=== PATIENT | female | born 1990 | race Caucasian/White ===

== ENCOUNTER 2017-07-10 04:50 | Inpatient (IN) | payer BC ==
[2017-07-10] MEDS ORDERED: Ondansetron 4 MG/2 ML SDV IVPUSH PRN (07:13)
[2017-07-10] MEDS ORDERED: Sodium Chloride 0.9% 10 ML Syringe FLUSH PRN (07:13)
[2017-07-10] MEDS ORDERED: Nalbuphine 20 MG/1 ML Amp IVPUSH PRN (07:13)
[2017-07-10] MEDS ORDERED: Lidocaine 1% 50 ML MDV INJECT ONE (07:13)
[2017-07-10] MEDS ORDERED: Oxytocin/Lactated Ringers 10 UNIT/1,000 ML BAG IV SCH (07:15)
--- NOTE | 2017-07-10 07:36 | HP ---
DATE OF ADMISSION: 07/10/2017 ADMISSION DIAGNOSIS: A 40 and 5/7th week intrauterine , elective induction of labor. HISTORY OF PRESENT ILLNESS: The patient is a 26-year-old, 2, para 0-0-1-0 white female who presents to Labor and Delivery for elective induction of labor at 40 and 5/7th weeks' gestational age with an DANE of 07/05/2017 as based upon a certain last menstrual period, which started on 09/28/2016 and was supported by at least 3 ultrasounds done on 11/10/2016, 12/08/2016, and 02/15/2017. The patient presently is 2 cm dilated, very soft, -1 station, and posteriorly positioned. We will initiate induction with Pitocin to be followed by artificial rupture of membranes. The procedure, risks, benefits, and alternatives of care including monitoring for natural onset of labor are discussed in detail with the patient. She appears to understand, wishes to proceed. MOTOR TESTER HISTORY: 2, para 0-0-1-0 with 1 miscarriage that occurred in August 2016 spontaneously. The patient's course has been relatively unremarkable. She has been a member of our centering program. She is Rh negative and did receive RhoGAM during the course of her at second trimester. She declined genetic evaluation. Her group B strep screen is negative. She has had a symptomatic hemorrhoid over the last 2 weeks, which has been treated conservatively with medications. She is rubella nonimmune and is in need of an MMR . She plans to breastfeed. First visit was on 12/08/2016 at 10 and 1/7th weeks gestational age. She was seen on a regular basis throughout the . Her vital signs remained stable through the . Her weight increased from a pregravid weight of 133 to a final weight of 181 at the time of her last visit. This was a 48-pound weight gain. Her fundal height growth was appropriate. heart tones were appropriate. laboratory testing showed her blood to be O negative with a negative antibody screen. First hemoglobin was 13.6, and platelets were 257,000. Her Pap smear was negative. Rubella titer showed nonimmunity. RPR was nonreactive. Urine culture was negative. Hepatitis B and HIV assays were both negative. Chlamydia and gonorrhea assays were both negative. Second trimester laboratory testing showed a hemoglobin of 13.2 and platelets of 216,000. Her 1-hour GTT was normal at 102. Third trimester hemoglobin was 11.1 and platelets were 207, and the patient was started on iron therapy. Her group B strep screen was negative. ALLERGIES: None other than shellfish. No known drug allergies. CURRENT MEDICATIONS: 1. Hydrocortisone 2.5% rectal cream up to t.i.d. p.r.n. for hemorrhoidal pain. 2. Ferrous sulfate 325 mg daily. 3. Calcium 600 mg daily. 4. Folic acid 800 mcg daily. 5. Hair, skin, and nails formula oral tablets daily. 6. tablets 1 daily. PAST MEDICAL HISTORY: Spontaneous in August 2016. PAST SURGICAL HISTORY: Unremarkable. FAMILY HISTORY: Mother and father are alive and well. The patient has 2 half brothers who are alive and well. Maternal grandmother is alive and well. Maternal grandfather is secondary to old age. Paternal grandfather with heart disease in his 90s. Paternal grandmother is alive and well, but with a knee replacement. No bleeding, clotting, , anesthesia, or asthma problems noted in the family. SOCIAL HISTORY: The patient is , lives in [place]. She works as a intellectual property legal assistant. She does not use any significant amounts of alcohol, drugs, or tobacco. REVIEW OF SYSTEMS: SKIN: Negative. CARDIOVASCULAR: No chest pain or exercise intolerance. RESPIRATORY: No infectious symptoms or shortness of breath. BREASTS: Changes associated with . The patient does plan to breastfeed. GI: Unremarkable with the exception of hemorrhoidal symptoms with swelling, pain, and itching. : Changes associated with . MUSCULOSKELETAL: No significant problems noted. NEUROLOGICAL: Negative. PHYSICAL EXAMINATION: VITAL SIGNS: At the beginning of her , weight was 133, height was 5 feet 6, and body mass index was 21.5. Last evaluation in the clinic, blood pressure was 102/72, weight was 181.2, heart rate was 142. GENERAL: The patient is a well-developed, well-nourished, pleasant female, stated age, in no acute distress. SKIN: Warm and dry without lesions. HEENT, NECK, AND BACK: Within normal limits. CARDIOVASCULAR: Unremarkable with normal heart rate and no murmurs. RESPIRATORY: Shows lungs to be clear with good breath sounds in all lung norman. BREASTS: Exam is deferred having been found to be normal at first visit and not repeated at this time. The patient does plan to breastfeed. ABDOMEN: Protuberant with with fundal height of 38+ cm. : Cervix shows dilation of 2 cm, very soft, -1 station, posterior position, 90% effaced. EXTREMITIES: Show no significant edema or other problems. NEUROLOGICAL: Grossly within normal limits. ASSESSMENT: 1. A 40 and 5/7th week intrauterine , elective induction of labor. 2. The patient's blood is Rh negative. is also Rh negative. 3. Rubella titer shows nonimmunity - The patient is a candidate for MMR prior to discharge from the hospital. 4. History of group B strep negative status. 5. Hemorrhoid causes some concerns and is treated. 6. The patient declined genetic evaluation. 7. The patient plans to breastfeed. PLAN: 1. Pitocin induction of labor with artificial rupture of membranes to follow. The procedure, risks, benefits, alternatives of care including allowing natural labor to occur all discussed in detail with the patient. She appears to understand and wishes to proceed with induction. 2. MMR, post delivery. 3. Epidural offered. The patient will decide on analgesia in labor. 4. CBC to be done at the time of admission. 5. Support decision. MMKEISHA /[id number]
--- NOTE | 2017-07-10 08:04 | PCM.PREANE ---
Preanesthetic Assessment - Anesthesia/Transfusion/Family Hx Anesthesia History: Prior Anesthesia Without Reaction Family History of Anesthesia Reaction: No Transfusion History: No Prior Transfusion(s) - Review of Systems General: No Symptoms Pulmonary: No Symptoms Cardiovascular: No Symptoms Gastrointestinal: No Symptoms Neurological: No Symptoms Other: Reports: None - Physical Assessment Respiratory Rate: 18 Vital Signs: Last Vital Signs Temp 98.2 F 07/10/17 06:59 Pulse 95 07/10/17 06:59 Resp 18 07/10/17 06:59 BP 127/79 07/10/17 06:59 Pulse Ox Height: 5 ft 6 in Weight: 84.005 kg ASA Class: 2 Mental Status: Alert & Oriented x3 Airway Class: Mallampati = 1 Dentition: Reports: Normal Dentition Thyro-Mental Finger Breadths: 3 Mouth Opening Finger Breadths: 3 ROM/Head Extension: Full Lungs: Clear to Auscultation, Normal Respiratory Effort Cardiovascular: Regular Rate, Regular Rhythm - Lab Values: Laboratory Last Values WBC 7.37 K/mm3 (3.98-10.04) 07/10/17 07:32 RBC 3.88 M/mm3 (3.98-5.22) L 07/10/17 07:32 Hgb 11.0 gm/L (11.2-15.7) L 07/10/17 07:32 Hct 33.6 % (34.1-44.9) L 07/10/17 07:32 MCV 86.6 fl (79.4-94.8) 07/10/17 07:32 MCH 28.4 pg (25.6-32.2) 07/10/17 07:32 MCHC 32.7 g/dl (32.2-35.5) 07/10/17 07:32 RDW Std Deviation 45.7 fL (36.4-46.3) 07/10/17 07:32 Plt Count 190 K/mm3 (182-369) 07/10/17 07:32 MPV 11.1 fl (9.4-12.3) 07/10/17 07:32 Neut % (Auto) 69.2 % (34.0-71.1) 07/10/17 07:32 Lymph % (Auto) 19.9 % (19.3-51.7) 07/10/17 07:32 [place] % (Auto) 10.0 % (4.7-12.5) 07/10/17 07:32 Eos % (Auto) 0.4 (0.7-5.8) L 07/10/17 07:32 Baso % (Auto) 0.1 % (0.1-1.2) 07/10/17 07:32 Neut # (Auto) 5.09 K/mm3 (1.56-6.13) 07/10/17 07:32 Lymph # (Auto) 1.47 K/mm3 (1.18-3.74) 07/10/17 07:32 [place] # (Auto) 0.74 K/mm3 (0.24-0.36) H 07/10/17 07:32 Eos # (Auto) 0.03 K/mm3 (0.04-0.36) L 07/10/17 07:32 Baso # (Auto) 0.01 K/mm3 (0.01-0.08) 07/10/17 07:32 - Allergies Allergies/Adverse Reactions: Allergies Allergy/AdvReac Type Severity Reaction Status Date / Time shellfish derived Allergy Difficulty Verified 07/10/17 07:01 Swallowing - Blood Blood Available: No - Acknowledgements Anesthesia Type Planned: Epidural Pt an Appropriate Candidate for the Planned Anesthesia: Yes Alternatives and Risks of Anesthesia Discussed w Pt/Guardian: Yes Pt/Guardian Understands and Agrees with Anesthesia Plan: Yes PreAnesthesia Questionnaire Cardiovascular History: Reports: None Respiratory History: Reports: None Gastrointestinal History: Reports: GERD (WITH PREG) : 2 (40 5 weeks) Para: 0 Musculoskeletal History: Reports: None Neurological History: Reports: None Psychiatric History: Reports: None Oncologic (Cancer) History: Reports: None - History Comment History Comment: vits and ca - SUBSTANCE USE Smoking Status *Q: Never Smoker Tobacco Use Within Last Twelve Months: No Second Hand Smoke Exposure: No Days Per Week of Alcohol Use: 0 Recreational Drug Use History: No - CURRENT (IN HOUSE) MEDS Current Meds: Current Medications Lactated Ringer's (Ringers, Lactated) 1,000 mls @ 100 mls/hr IV ASDIRECTED STEPHIE Oxytocin/Lactated Ringer's (Pitocin In Lr 10 Units/1,000 Ml) 10 unit in 1,000 mls @ 12 mls/hr IV TITRATE STEPHIE; 2 MUNITS/MIN PRN Reason: Protocol Nalbuphine HCl (Nubain) 10 mg IVPUSH Q2H PRN PRN Reason: Pain (moderate 4-6) Ondansetron HCl (Zofran) 4 mg IVPUSH Q4H PRN PRN Reason: Nausea/Vomiting Sodium Chloride (Saline Flush) 10 ml FLUSH ASDIRECTED PRN PRN Reason: Keep Vein Open Discontinued Medications Lidocaine HCl (Xylocaine 1%) 10 ml INJECT ONETIME ONE Stop: 07/10/17 07:14
[2017-07-10] MEDS ORDERED: diphenhydrAMINE 50 MG/ML SDV IVPUSH PRN (08:05)
[2017-07-10] MEDS ORDERED: ePHEDrine 50 MG/ML SDV IVPUSH PRN (08:05)
[2017-07-10] MEDS ORDERED: Bupivacaine/fentaNYL/NS 100 ML Bag EPIDUR SCH (08:15)
[2017-07-10] MEDS: Lactated Ringers 1,000 ML IV SCH ×4 (09:27→15:20)
[2017-07-10] MEDS: fentaNYL 100 MCG/2 ML SDV EPIDUR PRN ×2 (14:36→21:27)
[2017-07-10] MEDS ORDERED: Bupivacaine 0.25% 10 ML SDV ONE (22:22)
--- NOTE | 2017-07-10 23:02 | PCM.SN ---
- Free Text/Narrative Note: Fabiola is a 26-year-old 1 now para 1001 white female who is admitted on the a.m. of 07/10/2017 for elective induction of labor at 40-5/7 weeks gestational age. She underwent Pitocin induction followed by artificial rupture of membranes augmentation with resultant mildly to moderate meconium stained amniotic fluid. She progressed to complete by approximately 1730 hrs. Epidural was used for labor and analgesia but was allowed to wear off and patient was allowed to labor down at this time.. She then began pushing. At 2226 hrs. the patient delivered a viable, palacio, 3650 g (8 lbs. 1 oz.), 21 inches long, male infant in a direct occiput anterior presentation. The patient had a second- degree laceration which was repaired in a routine fashion with 3-0 Monocryl. After delivery of the baby the cord was clamped 2 and baby was taken to the warmer for Dr. Johnson, mortuary operations manager, for evaluation. Baby had Apgars of 9 and 9. Pitocin was administered after delivery of the baby to facilitate an increase in uterine tone and reduce risk of uterine bleeding. At 2237 hrs. the placenta delivered spontaneously in a Wills fashion, appeared complete and intact but was stained with meconium. It was discarded per patient preference. Estimated blood loss was 100 mL. Patient nursed the baby after delivery. Condition: Good
[2017-07-10] MEDS ORDERED: Benzocaine/Menthol 20%-0.5% Spray 56 GM Canister TOP PRN (23:10)
[2017-07-10] MEDS ORDERED: Lanolin 100% Cream 7 GM Tube TOP PRN (23:10)
[2017-07-10] MEDS ORDERED: Witch Hazel Medicated Pads 100/Jar TOP PRN (23:10)
[2017-07-11] MEDS: Ibuprofen 600 MG Tab PO PRN ×4 (02:13→14:58)
[2017-07-11] MEDS: Docusate Sodium 100 MG Cap PO PRN ×2 (02:14→14:59)
[2017-07-11] MEDS: Acetaminophen 325 MG Tab PO PRN ×2 (06:39→13:04)
--- NOTE | 2017-07-11 09:44 | PCM.SN ---
- Free Text/Narrative Note: Patient doing well this morning. She is day 1. Has minimal lochia, ambulatory and well, voiding without problems and nursing without concerns. Vital signs stable. Patient is afebrile. Abdomen soft, nontender. Uterus is below the umbilicus. Nontender. Firm. Legs nontender. Hemoglobin 9.5, platelets 160 Assessment/plan: Routine care. Home tomorrow.
--- NOTE | 2017-07-11 11:35 | PCM48HPAN ---
Post Anesthesia Note - EVALUATION WITHIN 48HRS OF ANESTHETIC Vital Signs in Normal Range: Yes Patient Participated in Evaluation: Yes Respiratory Function Stable: Yes Airway Patent: Yes Cardiovascular Function Stable: Yes Hydration Status Stable: Yes Pain Control Satisfactory: Yes Nausea and Vomiting Control Satisfactory: Yes Mental Status Recovered: Yes Pulse Rate: 63 Resp Rate: 18 Temperature: 36.7 C Blood Pressure: 115/75 - COMMENTS/OBSERVATIONS Free Text/Narrative:: no anesthesia complications
[2017-07-11] MEDS ORDERED: Measles, Mumps & Rubella Vaccine 0.5 ML SDV SUBCUT ONE (15:06)
[2017-07-11] MEDS ORDERED: Acetaminophen/oxyCODONE 325-5 MG Tab ONE (19:48)
[2017-07-11] MEDS: Acetaminophen/oxyCODONE 325-5 MG Tab PO PRN (21:00)
[2017-07-12] MEDS: Prenatal Multivitamin with Calcium/Folic Acid/Iron Tab PO SCH ×2 (00:15→10:28)
[2017-07-12] MEDS: Acetaminophen/oxyCODONE 325-5 MG Tab PO PRN ×4 (01:12→14:34)
[2017-07-12] MEDS: Docusate Sodium 100 MG Cap PO PRN (06:35)
--- NOTE | 2017-07-14 17:35 | PCM.DCSUM1 ---
Discharge Summary - Hospital Course Free Text/Narrative:: Fabiola is a 26-year-old 1 now para 1001 white female who is admitted on the a.m. of 07/10/2017 for elective induction of labor at 40-5/7 weeks gestational age. She underwent Pitocin induction followed by artificial rupture of membranes augmentation with resultant mildly to moderate meconium stained amniotic fluid. She progressed to complete by approximately 1730 hrs. Epidural was used for labor and analgesia but was allowed to wear off and patient was allowed to labor down at this time.. She then began pushing. At 2226 hrs. the patient delivered a viable, palacio, 3650 g (8 lbs. 1 oz.), 21 inches long, male infant in a direct occiput anterior presentation. The patient had a second- degree laceration which was repaired in a routine fashion with 3-0 Monocryl. After delivery of the baby the cord was clamped 2 and baby was taken to the warmer for Dr. Johnson, senior software engineer analytics, for evaluation. Baby had Apgars of 9 and 9. Pitocin was administered after delivery of the baby to facilitate an increase in uterine tone and reduce risk of uterine bleeding. At 2237 hrs. the placenta delivered spontaneously in a Wills fashion, appeared complete and intact but was stained with meconium. It was discarded per patient preference. Estimated blood loss was 100 mL. Patient nursed the baby after delivery. patient has done well. She is desiring discharge home. - Discharge Data Discharge Date: 07/12/17 Discharge Disposition: Home, Self-Care 01 Condition: Good - Patient Instructions Diet: Regular Diet as Tolerated (Nursing diet with increase calories and calcium as directed) Activity: As Tolerated (No intercourse tampons until bleeding resolves) Driving: May Drive Today Showering/Bathing: May Shower (May take a bath) Notify Provider of: Fever, Increased Pain, Swelling and Redness, Nausea and/or Vomiting - Discharge Plan Home Medications: Home Meds Vits #93/Iron Fum/FA [ Formula Tablet] 1 tab PO DAILY 07/10/17 [History] Patient Handouts: Mastitis, [id number], Vaginal Delivery, Care After Referrals: Wyatt Thakur MD [Primary Care Provider] - (Return to clinicDr. Thakur2 weeks) - Discharge Summary/Plan Comment DC Time >30 min.: No Discharge Summary/Plan Comment: Discharge instructions: 1. Discharge home 2. Diet, activity and follow-up discussed with patient. Recommend nursing diet with increased calories and calcium. 3. Precautions given concern increased pain, bleeding, temperature, signs/ symptoms of DVT/PE. 4. Medications per home medication was printed, discussed with and given to the patient. 5. Return to clinic-Dr. Thakur[facility] in 2 weeks. Diagnosis: Term -delivered Condition: Good - Patient Data Vitals - Most Recent: Last Vital Signs Temp 36.6 C 07/12/17 14:08 Pulse 64 07/12/17 14:08 Resp 16 07/12/17 14:08 BP 119/77 07/12/17 14:08 Pulse Ox 99 07/12/17 14:08 Weight - Most Recent: 84.005 kg Med Orders - Current: Current Medications Discontinued Medications Acetaminophen (Tylenol) 650 mg PO Q4H PRN PRN Reason: mild pain or fever Last Admin: 07/11/17 13:04 Dose: 650 mg Benzocaine/Menthol (Dermoplast Pain Relief [place]) 0 gm TOP ASDIRECTED PRN PRN Reason: Perineal Comfort Measure Last Admin: 07/11/17 02:14 Dose: 1 spray Bupivacaine HCl (Sensorcaine-Mpf 0.25%) 20 ml .ROUTE .STK-MED ONE Stop: 07/10/17 22:23 Diphenhydramine HCl (Benadryl) 25 mg IVPUSH Q6H PRN PRN Reason: pruritis Docusate Sodium (Colace) 100 mg PO BID PRN PRN Reason: Constipation Last Admin: 07/12/17 06:35 Dose: 100 mg Emollient Ointment (Lansinoh Hpa) 0 gm TOP ASDIRECTED PRN PRN Reason: Sore Nipples Ephedrine Sulfate (Ephedrine Sulfate) 5 mg IVPUSH ASDIRECTED PRN PRN Reason: Hypotension Fentanyl (Sublimaze) 100 mcg EPIDUR Q3H PRN PRN Reason: Pain Last Admin: 07/10/17 21:27 Dose: 100 mcg Fentanyl/Bupivacaine HCl (Fentanyl/Bupivacaine/Ns 2 Mcg-0.125% 100 Ml) 100 ml EPIDUR ASDIRECTED STEPHIE Last Admin: 07/10/17 14:36 Dose: 100 ml Lactated Ringer's (Ringers, Lactated) 1,000 mls @ 100 mls/hr IV ASDIRECTED STEPHIE Last Admin: 07/10/17 15:20 Dose: 500 mls/hr Oxytocin/Lactated Ringer's (Pitocin In Lr 10 Units/1,000 Ml) 10 unit in 1,000 mls @ 12 mls/hr IV TITRATE STEPHIE; 2 MUNITS/MIN PRN Reason: Protocol Last Titration: 07/10/17 22:14 Dose: 9 munits/min, 54 mls/hr Ibuprofen (Motrin) 600 mg PO Q4H PRN PRN Reason: Mild pain or fever Last Admin: 07/11/17 14:58 Dose: 600 mg Lidocaine HCl (Xylocaine 1%) 10 ml INJECT ONETIME ONE Stop: 07/10/17 07:14 Measles/Mumps/Rubella Vaccine Live (M-M-R Ii Vaccine) 0.5 ml SUBCUT .ONCE ONE Stop: 07/11/17 15:07 Last Admin: 07/11/17 17:36 Dose: 0.5 ml Nalbuphine HCl (Nubain) 10 mg IVPUSH Q2H PRN PRN Reason: Pain (moderate 4-6) Ondansetron HCl (Zofran) 4 mg IVPUSH Q4H PRN PRN Reason: Nausea/Vomiting Last Admin: 07/10/17 17:42 Dose: 4 mg Oxycodone/Acetaminophen (Percocet 325-5 Mg) 2 tab PO Q4H PRN PRN Reason: Pain Last Admin: 07/12/17 14:34 Dose: 2 tab Oxycodone/Acetaminophen (Percocet 325-5 Mg) Confirm Administered Dose 2 tab .ROUTE .STK-MED ONE Stop: 07/11/17 19:49 Last Admin: 07/12/17 00:13 Dose: Not Given Prenat Multivit/Policy Change Clerk/Iron/Folic Ac ( Plus Iron) 1 each PO DAILY STEPHIE Last Admin: 07/12/17 10:28 Dose: 1 each Sodium Chloride (Saline Flush) 10 ml FLUSH ASDIRECTED PRN PRN Reason: Keep Vein Open Witch Nayla (Tucks) 1 pad TOP ASDIRECTED PRN PRN Reason: Hemorrhoid pain Last Admin: 07/11/17 02:14 Dose: 1 applic *Q Meaningful Use (DIS) - VTE *Q VTE Criteria *Q: - Stroke *Q Stroke Criteria *Q: - AMI *Q AMI Criteria *Q:
== END 2017-07-12 17:00 | disposition home or self-care (01) | DRG 560 ==
LOC: JD.OB 06:43 → OBSVTOIN 22:26
PROVIDERS: ADMIT Obstetrics & Gynecology; ATTEND Obstetrics & Gynecology
PROC: 10E0XZZ Delivery of Products of Conception, External Approach (ICD-10-PCS; principal; 2017-07-10)
PROC: 10907ZC Drainage of Amniotic Fluid, Therapeutic from Products of Conception, Via Natural or Artificial Opening (ICD-10-PCS; 2017-07-10)
PROC: 3E033VJ Introduction of Other Hormone into Peripheral Vein, Percutaneous Approach (ICD-10-PCS; 2017-07-10)
PROC: 0KQM0ZZ Repair Perineum Muscle, Open Approach (ICD-10-PCS; 2017-07-10)
PROC: 00HU33Z Insertion of Infusion Device into Spinal Canal, Percutaneous Approach (ICD-10-PCS; 2017-07-10)
PROC: 3E0R3BZ Introduction of Anesthetic Agent into Spinal Canal, Percutaneous Approach (ICD-10-PCS; 2017-07-10)
DX: O48.0 Post-term pregnancy (principal); O77.0 Labor and delivery complicated by meconium in amniotic fluid; O70.1 Second degree perineal laceration during delivery; Z3A.41 41 weeks gestation of pregnancy; Z37.0 Single live birth; Z91.013 Allergy to seafood
CPT/HCPCS: 36415; 51702; 59300; 59409; 85025; 85027; 90471; 90707; A9270-GY; J2405; J2590; J3010; J7120

== ENCOUNTER 2019-02-09 16:25 | Inpatient (IN) | payer BC ==
[~2019-02-09 16:25] MED LIST: Bupivacaine 0.25% 10 ML SDV ONE; Lidocaine 1.5% with EPINEPHrine 1:200,000 5 ML Amp ONE
[2019-02-09] MEDS ORDERED: Nalbuphine 10 MG/1 ML Vial IVPUSH PRN (16:28)
[2019-02-09] MEDS ORDERED: Ondansetron 4 MG/2 ML SDV IVPUSH PRN (16:28)
[2019-02-09] MEDS ORDERED: Sodium Chloride 0.9% 10 ML Syringe FLUSH PRN (16:28)
[2019-02-09] MEDS ORDERED: Oxytocin/Lactated Ringers 10 UNIT/1,000 ML BAG IV SCH ×2 (16:30)
--- NOTE | 2019-02-09 16:32 | PCM.LDHP ---
L&D History of Present Illness - General Date of Service: 02/09/19 Admit Problem/Dx: Patient Status Order with Admit Dx/Problem 02/09/19 16:28 Patient Status [ADT] Routine Admission Diagnosis/Problem Admission Diagnosis/Problem Normal in third trimester Source of Information: Patient History Limitations: Reports: No Limitations - History of Present Illness Introduction:: Patient is a 28 y/o at 39 2/7 wks presents for IOL. Doing well today. notes some intermittent contractions. No LOF. No other issues. - Related Data Allergies/Adverse Reactions: Allergies Allergy/AdvReac Type Severity Reaction Status Date / Time shellfish derived Allergy Severe Difficulty Verified 02/09/19 17:45 Swallowing Home Medications: Home Meds Vits #93/Iron Fum/FA [ Formula Tablet] 1 tab PO DAILY 07/10/17 [History] Iron,Carbonyl/Vit C/Vit B12/Fa [Iron 100 Plus Tablet] 1 tab PO DAILY 02/09/19 [ History] Past Medical History Gastrointestinal History: Reports: GERD (WITH PREG) PRODUCT LEAD History: Reports: , Spontaneous : 3 Para: 1 LMP (Approximate): - Past Surgical History HEENT Surgical History: Reports: Oral Surgery Social & Family History - Family History Family Medical History: Noncontributory - Tobacco Use Smoking Status *Q: Never Smoker - Caffeine Use Caffeine Use: Reports: None - Alcohol Use Alcohol Use History: No - Recreational Drug Use Recreational Drug Use: No H&P Review of Systems - Review of Systems: Review Of Systems: See Below General: Reports: No Symptoms Pulmonary: Reports: No Symptoms Cardiovascular: Reports: No Symptoms Gastrointestinal: Reports: No Symptoms Genitourinary: Reports: No Symptoms Musculoskeletal: Reports: No Symptoms Psychiatric: Reports: No Symptoms Neurological: Reports: No Symptoms Hematologic/Lymphatic: Reports: No Symptoms L&D Exam - Exam Exam: See Below - OB Specific Contraction Intensity: Irritability Movement: Active Heart Tones: Present Heart Tones per Min: 135 Heart Rate (FHR) Variability: Moderate (6-25 bmp) Presentation: Vertex - Osei Score Osei Score Cervix Position: Posterior Osei Score Consistency: Soft Osei Score Effacement: >80% Osei Score Dilation: 1-2 cm Osei Score Infant's Station: -2 Osei Score Total: 7 - Exam General: Alert, Oriented, Cooperative Lungs: Clear to Auscultation, Normal Respiratory Effort Cardiovascular: Regular Rate, Regular Rhythm GI/Abdominal Exam: Soft, Non-Tender Genitourinary: Normal external exam Extremities: Normal Inspection Skin: Warm, Dry, Intact - Patient Data Result Diagrams: 02/09/19 16:40 - Problem List (1) 39 weeks gestation of SNOMED Code(s): 11383404 ICD Code: Z3A.39 - 39 WEEKS GESTATION OF Status: Acute Current Visit: Yes (2) Rh negative state in antepartum period SNOMED Code(s): 436489002 ICD Code: O26.899 - OTH RELATED CONDITIONS, UNSPECIFIED TRIMESTER; Z67.91 - UNSPECIFIED BLOOD TYPE, RH NEGATIVE Status: Acute Current Visit: Yes (3) Marginal insertion of umbilical cord SNOMED Code(s): 87065739 ICD Code: [id number] - Status: Acute Current Visit: Yes Problem List Initiated/Reviewed/Updated: Yes Orders Last 24hrs: Active Orders 24 hr Category Date Time Status Patient Status [ADT] Routine ADT 02/09/19 16:28 Ordered Communication Order [RC] ASDIRECTED Care 02/09/19 16:28 Ordered Communication Order [RC] ASDIRECTED Care 02/09/19 16:28 Ordered Communication Order [RC] ASDIRECTED Care 02/09/19 16:28 Ordered Heart Tones [RC] ASDIRECTED Care 02/09/19 16:29 Ordered Monitoring [RC] INTERMITTENT Care 02/09/19 16:28 Ordered Non Stress Test [RC] PER UNIT ROUTINE Care 02/09/19 16:28 Ordered Notify Provider [RC] ASDIRECTED Care 02/09/19 16:28 Ordered Notify Provider [RC] PRN Care 02/09/19 16:28 Ordered Peripheral IV Care [RC] . DIRECTED Care 02/09/19 16:29 Ordered Up ad Tisha [RC] ASDIRECTED Care 02/09/19 16:29 Ordered Vaginal Exam [RC] ASDIRECTED Care 02/09/19 16:28 Ordered Vital Signs [RC] ASDIRECTED Care 02/09/19 16:28 Ordered Regular Diet [DIET] Diet 02/09/19 Dinner Ordered CBC W/O DIFF,HEMOGRAM [HEME] Routine Lab 02/09/19 16:28 Ordered RAPID PLASMA REAGIN,RPR [CHEM] Routine Lab 02/09/19 16:28 Ordered TYPE AND SCREEN [BBK] Routine Lab 02/09/19 16:28 Ordered Lactated Ringers [Ringers, Lactated] 1,000 ml Med 02/09/19 16:30 Ordered IV ASDIRECTED Nalbuphine [Nubain] Med 02/09/19 16:28 Ordered 10 mg IVPUSH Q2H PRN Ondansetron [Zofran] Med 02/09/19 16:28 Ordered 4 mg IVPUSH Q4H PRN Oxytocin/Lactated Ringers [Pitocin in LR 10 Units/1,000 Med 02/09/19 16:30 Ordered ML] 10 unit in 1,000 ml IV .CONTINUOUS Oxytocin/Lactated Ringers [Pitocin in LR 10 Units/1,000 Med 02/09/19 16:30 Ordered ML] 10 unit in 1,000 ml IV TITRATE Sodium Chloride 0.9% [Saline Flush] Med 02/09/19 16:28 Ordered 10 ml FLUSH ASDIRECTED PRN Electronic Heart Tones Ext w TOCO [WOMSER] Oth 02/09/19 16:28 Ordered Routine Electronic Heart Tones Internal [WOMSER] Per Unit Oth 02/09/19 16:28 Ordered Routine Peripheral IV Insertion Adult [OM.PC] Routine Oth 02/09/19 16:28 Ordered Resuscitation Status Routine Resus Stat 02/09/19 16:28 Ordered Assessment/Plan Comment:: 28 y/o at 39 2/7 wks presents for IOL * Labs * GBS negative * Pitocin and AROM * Pain management per patient preference * Anticipate
[2019-02-09] MEDS: Lactated Ringers 1,000 ML IV SCH ×3 (17:21→21:48)
--- NOTE | 2019-02-09 17:55 | PCM.PREANE ---
Preanesthetic Assessment - Anesthesia/Transfusion/Family Hx Anesthesia History: Prior Anesthesia Without Reaction Family History of Anesthesia Reaction: No Transfusion History: No Prior Transfusion(s) - Review of Systems General: No Symptoms Pulmonary: No Symptoms Cardiovascular: No Symptoms Gastrointestinal: No Symptoms Neurological: No Symptoms Other: Reports: None - Physical Assessment NPO Status Date: 02/09/19 (chicken and rice) NPO Status Time: 12:00 ASA Class: 1 Mental Status: Alert & Oriented x3 Dentition: Reports: Normal Dentition ROM/Head Extension: Full Lungs: Clear to Auscultation, Normal Respiratory Effort Cardiovascular: Regular Rate, Regular Rhythm - Lab Values: Laboratory Last Values WBC 6.74 K/mm3 (3.98-10.04) 02/09/19 16:40 RBC 4.44 M/mm3 (3.98-5.22) 02/09/19 16:40 Hgb 13.3 gm/dl (11.2-15.7) D 02/09/19 16:40 Hct 40.6 % (34.1-44.9) 02/09/19 16:40 MCV 91.4 fl (79.4-94.8) 02/09/19 16:40 MCH 30.0 pg (25.6-32.2) 02/09/19 16:40 MCHC 32.8 g/dl (32.2-35.5) 02/09/19 16:40 RDW Std Deviation 54.4 fL (36.4-46.3) H 02/09/19 16:40 Plt Count 146 K/mm3 (182-369) L 02/09/19 16:40 MPV 12.0 fl (9.4-12.3) 02/09/19 16:40 Blood Type O NEGATIVE 02/09/19 16:40 - Allergies Allergies/Adverse Reactions: Allergies Allergy/AdvReac Type Severity Reaction Status Date / Time shellfish derived Allergy Severe Difficulty Verified 07/10/17 09:52 Swallowing - Acknowledgements Anesthesia Type Planned: Epidural Pt an Appropriate Candidate for the Planned Anesthesia: Yes Alternatives and Risks of Anesthesia Discussed w Pt/Guardian: Yes Pt/Guardian Understands and Agrees with Anesthesia Plan: Yes PreAnesthesia Questionnaire Cardiovascular History: Reports: None Respiratory History: Reports: None Gastrointestinal History: Reports: GERD (WITH PREG) INSPECTOR FINISHING History: Reports: Musculoskeletal History: Reports: None Neurological History: Reports: None Psychiatric History: Reports: None Oncologic (Cancer) History: Reports: None - Past Surgical History HEENT Surgical History: Reports: Oral Surgery - History Comment History Comment: vits and ca - HOME MEDS Home Medications: Home Meds Vits #93/Iron Fum/FA [ Formula Tablet] 1 tab PO DAILY 07/10/17 [History] - CURRENT (IN HOUSE) MEDS Current Meds: Current Medications Lactated Ringer's (Ringers, Lactated) 1,000 mls @ 40 mls/hr IV ASDIRECTED STEPHIE Last Admin: 02/09/19 17:21 Dose: 40 mls/hr Oxytocin/Lactated Ringer's (Pitocin In Lr 10 Units/1,000 Ml) 10 unit in 1,000 mls @ 12 mls/hr IV TITRATE STEPHIE; Protocol Last Admin: 02/09/19 17:21 Dose: 2 munits/min, 12 mls/hr Oxytocin/Lactated Ringer's (Pitocin In Lr 10 Units/1,000 Ml) 10 unit in 1,000 mls @ 500 mls/hr IV .CONTINUOUS STEPHIE Nalbuphine HCl (Nubain) 10 mg IVPUSH Q2H PRN PRN Reason: Pain Ondansetron HCl (Zofran) 4 mg IVPUSH Q4H PRN PRN Reason: Nausea/Vomiting Sodium Chloride (Saline Flush) 10 ml FLUSH ASDIRECTED PRN PRN Reason: Keep Vein Open
[2019-02-09] MEDS ORDERED: fentaNYL 100 MCG/2 ML SDV EPIDUR PRN (18:20)
[2019-02-09] MEDS ORDERED: ePHEDrine 50 MG/ML SDV IVPUSH PRN (18:20)
[2019-02-09] MEDS ORDERED: Bupivacaine/fentaNYL/NS 100 ML Bag EPIDUR PRN (18:20)
[2019-02-09] MEDS ORDERED: diphenhydrAMINE 50 MG/ML SDV IVPUSH PRN (18:20)
--- NOTE | 2019-02-09 20:02 | PCM.SN ---
- Free Text/Narrative Note: Patient went to use the restroom and had significant enough motor weakness in her right leg with flexion and abduction that she "slipped to the floor." The patient was uninjured and the baby was not distressed. With RN assistance we placed her back in bed and I removed the tape and pulled the catheter back 3 cm. We will continue to monitor the patient for motor/sensory deficits. But for now she will remain in bed until evidence of full motor function return. When she is ready for analgesia we will re-test the epidural catheter and begin dosing to see if she obtains bilateral analgesia.
--- NOTE | 2019-02-09 21:46 | PCM.SN ---
- Free Text/Narrative Note: Patient re-assessed and has 90% return of motor function in right L4-5 distribution. Mild sensory deficiency to light touch. It's likely that the catheter tip was proximal to the nerve root and the 3 mL test dose caused a high degree of motor inhibition. Instructed RN to keep patient in bed until she is ready for dosing of epidural catheter.
--- NOTE | 2019-02-09 21:49 | PCM.SN ---
- Free Text/Narrative Note: Patient ready for dosing of epidural. Test dose of 3 mL 1.5% lidocaine in 1:200, 000 epinephrine negative. Administered remaining 2 mL of 1.5% lidocaine, followed by intermittent administration of 10 mL 0.25% marcaine and 100 mcg fentanyl via epidural catheter. Patient has reported pre-VAS pain score of 7/10 to 3/10. She is presently having some sensitivity on the left lower quadrant. KIA was used to improve analgesia on the left.
[2019-02-09] MEDS ORDERED: ceFAZolin 2 GM in Premix Bag 1 BAG IV ONE (22:39)
[2019-02-09] MEDS ORDERED: ceFAZolin/Dextrose,Iso-Osmotic 2 GM/50 ML Duplex Bag IV ONE (22:45)
--- NOTE | 2019-02-09 23:02 | PCM.DEL ---
L & D Note - General Info Date of Service: 02/09/19 - Delivery Note Labor: Induced by ARM, Induced by Oxytocin Delivery Outcome: Livebirth Infant Delivery Method: Spontaneous Vaginal Delivery-Single Infant Delivery Mode: Spontaneous Presentation: Left Occiput Anterior (TIFFANY) Nuchal Cord: None Anesthesia Type: Epidural Amniotic Fluid Description: Clear Episiotomy Type: None Laceration: 1st Degree (hemostatic, not repaired), Vaginal Placenta: Intact, Manual Removal Cord: 3 Vessels (velamentous cord insertion) Estimated Blood Loss: 300 Resuscitation Needed: Yes [place]: Bulb Syringe, Stimulated, Warmed, [place] Used, Warmer Used Delivery Comments (Free Text/Narrative):: patient found to be complete. With minimal pushing head delivered from an TIFFANY presentation. No nuchal cord present. With gentle downward traction shoulders and body delivered. placed on maternal abdomen. Cord clamped and cut. Cord blood obtained. Placenta allowed time to separate, but did not deliver. Manual exploration done and able to remove placenta intact. Did have a bilobed appearance and velamentous cord insertion. Patient given 2 grams of ancef for exploration. Inspection of perineum showed small 1st degree vaginal laceration which was hemostatic and so not repaired. - General Info Date of Service: 02/09/19 - Patient Data Vitals - Most Recent: Last Vital Signs Temp 37.0 C 02/09/19 16:28 Pulse 71 02/09/19 16:28 Resp 16 02/09/19 16:28 BP 131/88 02/09/19 16:28 Pulse Ox Weight - Most Recent: 75.931 kg I&O - Last 24 Hours: Intake & Output 02/09/19 02/09/19 02/09/19 06:59 14:59 22:59 Intake Total 2100 Balance 2100 Lab Results Last 24 Hours: Laboratory Results - last 24 hr 02/09/19 02/09/19 02/09/19 Range/Units 16:40 16:40 16:40 WBC 6.74 (3.98-10.04) K/mm3 RBC 4.44 (3.98-5.22) M/mm3 Hgb 13.3 D (11.2-15.7) gm/dl Hct 40.6 (34.1-44.9) % MCV 91.4 (79.4-94.8) fl MCH 30.0 (25.6-32.2) pg MCHC 32.8 (32.2-35.5) g/dl RDW Std Deviation 54.4 H (36.4-46.3) fL Plt Count 146 L (182-369) K/mm3 MPV 12.0 (9.4-12.3) fl RPR Non-reactive (NONREACTIVE) Blood Type O NEGATIVE Gel Antibody Screen Negative Med Orders - Current: Current Medications Diphenhydramine HCl (Benadryl) 25 mg IVPUSH Q6H PRN PRN Reason: pruritis Ephedrine Sulfate (Ephedrine Sulfate) 5 mg IVPUSH ASDIRECTED PRN PRN Reason: Hypotension Fentanyl (Sublimaze) 100 mcg EPIDUR Q3H PRN PRN Reason: Pain Last Admin: 02/09/19 21:21 Dose: 100 mcg Fentanyl/Bupivacaine HCl (Fentanyl/Bupivacaine/Ns 2 Mcg-0.125% 100 Ml) 100 ml EPIDUR ASDIRECTED PRN PRN Reason: Pain Last Admin: 02/09/19 21:20 Dose: 100 ml Lactated Ringer's (Ringers, Lactated) 1,000 mls @ 40 mls/hr IV ASDIRECTED STEPHIE Last Admin: 02/09/19 21:48 Dose: 40 mls/hr Oxytocin/Lactated Ringer's (Pitocin In Lr 10 Units/1,000 Ml) 10 unit in 1,000 mls @ 12 mls/hr IV TITRATE STEPHIE; Protocol Last Titration: 02/09/19 22:16 Dose: 500 mls/hr Oxytocin/Lactated Ringer's (Pitocin In Lr 10 Units/1,000 Ml) 10 unit in 1,000 mls @ 500 mls/hr IV .CONTINUOUS STEPHIE Cefazolin Sodium/Dextrose 2 gm (/ Premix) 50 mls @ 100 mls/hr IV ONETIME ONE Stop: 02/09/19 23:08 Nalbuphine HCl (Nubain) 10 mg IVPUSH Q2H PRN PRN Reason: Pain Ondansetron HCl (Zofran) 4 mg IVPUSH Q4H PRN PRN Reason: Nausea/Vomiting Sodium Chloride (Saline Flush) 10 ml FLUSH ASDIRECTED PRN PRN Reason: Keep Vein Open Discontinued Medications Cefazolin Sodium/Dextrose (Ancef) Confirm Administered Dose 2 gm IV .STK-MED ONE Stop: 02/09/19 22:46 - Problem List & Annotations (1) 39 weeks gestation of SNOMED Code(s): 00826508 Code(s): Z3A.39 - 39 WEEKS GESTATION OF Status: Acute Current Visit: Yes (2) Rh negative state in antepartum period SNOMED Code(s): 595585655 Code(s): O26.899 - OTH RELATED CONDITIONS, UNSPECIFIED TRIMESTER; Z67.91 - UNSPECIFIED BLOOD TYPE, RH NEGATIVE Status: Acute Current Visit: Yes (3) Vaginal delivery SNOMED Code(s): 928299881 Code(s): O80 - ENCOUNTER FOR FULL-TERM UNCOMPLICATED DELIVERY Status: Acute Current Visit: Yes (4) Velamentous insertion of umbilical cord SNOMED Code(s): 89049306 Code(s): O43.129 - VELAMENTOUS INSERTION OF UMBILICAL CORD, UNSP TRIMESTER Status: Acute Current Visit: Yes Qualifiers: Trimester: third trimester Qualified Code(s): O43.123 - Velamentous insertion of umbilical cord, third trimester (5) Retained placenta SNOMED Code(s): 151746975 Code(s): O73.0 - RETAINED PLACENTA WITHOUT HEMORRHAGE Status: Acute Current Visit: Yes Qualifiers: Retained placenta detail: complete placenta Qualified Code(s): O73.0 - Retained placenta without hemorrhage - Problem List Review Problem List Initiated/Reviewed/Updated: Yes - My Orders Last 24 Hours: My Active Orders 02/09/19 16:28 Patient Status [ADT] Routine Communication Order [RC] ASDIRECTED Communication Order [RC] ASDIRECTED Communication Order [RC] ASDIRECTED Monitoring [RC] INTERMITTENT Non Stress Test [RC] PER UNIT ROUTINE Notify Provider [RC] ASDIRECTED Notify Provider [RC] PRN Vaginal Exam [RC] ASDIRECTED Vital Signs [RC] ASDIRECTED Nalbuphine [Nubain] 10 mg IVPUSH Q2H PRN Ondansetron [Zofran] 4 mg IVPUSH Q4H PRN Sodium Chloride 0.9% [Saline Flush] 10 ml FLUSH ASDIRECTED PRN Electronic Heart Tones Ext w TOCO [WOMSER] Routine Electronic Heart Tones Internal [WOMSER] Per Unit Routine Peripheral IV Insertion Adult [OM.PC] Routine Resuscitation Status Routine 02/09/19 16:29 Heart Tones [RC] ASDIRECTED Peripheral IV Care [RC] . DIRECTED Up ad Tisha [RC] ASDIRECTED 02/09/19 16:30 Lactated Ringers [Ringers, Lactated] 1,000 ml IV ASDIRECTED Oxytocin/Lactated Ringers [Pitocin in LR 10 Units/1,000 ML] 10 unit in 1,000 ml IV .CONTINUOUS Oxytocin/Lactated Ringers [Pitocin in LR 10 Units/1,000 ML] 10 unit in 1,000 ml IV TITRATE 02/09/19 22:39 ceFAZolin [Ancef] 2 gm Premix Bag 1 bag IV ONETIME 02/09/19 Dinner Regular Diet [DIET] - Assessment Assessment:: 28 y/o PPD#0 from at 39 2/7 wks - Plan Plan:: * Routine cares * Breast feeding * Assess baby blood type following delivery * Discharge home in 2 days
[2019-02-09] MEDS ORDERED: Ibuprofen 600 MG Tab PO PRN (23:26)
[2019-02-09] MEDS ORDERED: Lanolin 100% Cream 7 GM Tube TOP PRN (23:26)
[2019-02-09] MEDS ORDERED: Acetaminophen 325 MG Tab PO PRN (23:26)
[2019-02-09] MEDS ORDERED: Benzocaine/Menthol 20%-0.5% Spray 56 GM Canister TOP PRN (23:26)
[2019-02-09] MEDS ORDERED: Docusate Sodium 100 MG Cap PO PRN (23:26)
[2019-02-09] MEDS ORDERED: Witch Hazel Medicated Pads 40/Jar TOP PRN (23:26)
--- NOTE | 2019-02-10 08:17 | PCM.PNPP ---
- General Info Date of Service: 02/10/19 Functional Status: Reports: Pain Controlled, Tolerating Diet, Ambulating, Urinating - Review of Systems General: Reports: No Symptoms Pulmonary: Reports: No Symptoms Cardiovascular: Reports: No Symptoms Gastrointestinal: Reports: No Symptoms Genitourinary: Reports: No Symptoms Musculoskeletal: Reports: No Symptoms - Patient Data Vital Signs - Most Recent: Last Vital Signs Temp 37.0 C 02/09/19 16:28 Pulse 71 02/09/19 16:28 Resp 16 02/09/19 16:28 BP 131/88 02/09/19 16:28 Pulse Ox Weight - Most Recent: 75.931 kg I&O - Last 24 Hours: Intake & Output 02/09/19 02/10/19 02/10/19 22:59 06:59 14:59 Intake Total 2100 1100 Balance 2100 1100 Lab Results - Last 24 Hours: Laboratory Results - last 24 hr 02/09/19 02/09/19 02/09/19 Range/Units 16:40 16:40 16:40 WBC 6.74 (3.98-10.04) K/mm3 RBC 4.44 (3.98-5.22) M/mm3 Hgb 13.3 D (11.2-15.7) gm/dl Hct 40.6 (34.1-44.9) % MCV 91.4 (79.4-94.8) fl MCH 30.0 (25.6-32.2) pg MCHC 32.8 (32.2-35.5) g/dl RDW Std Deviation 54.4 H (36.4-46.3) fL Plt Count 146 L (182-369) K/mm3 MPV 12.0 (9.4-12.3) fl RPR Non-reactive (NONREACTIVE) Blood Type O NEGATIVE Gel Antibody Screen Negative Med Orders - Current: Current Medications Acetaminophen (Tylenol) 650 mg PO Q4H PRN PRN Reason: mild pain or fever Benzocaine/Menthol (Dermoplast Pain Relief [place]) 0 gm TOP ASDIRECTED PRN PRN Reason: Perineal Comfort Measure Last Admin: 02/10/19 02:58 Dose: 1 applicful Docusate Sodium (Colace) 100 mg PO BID PRN PRN Reason: Constipation Emollient Ointment (Lansinoh Hpa) 0 gm TOP ASDIRECTED PRN PRN Reason: Sore Nipples Ibuprofen (Motrin) 600 mg PO Q6H PRN PRN Reason: Mild pain or fever Witch Nayla (Tucks) 1 pad TOP ASDIRECTED PRN PRN Reason: Perineal Comfort Measure Last Admin: 02/10/19 02:57 Dose: 1 applic Discontinued Medications Cefazolin Sodium/Dextrose (Ancef) Confirm Administered Dose 2 gm IV .STK-MED ONE Stop: 02/09/19 22:46 Last Admin: 02/09/19 23:44 Dose: Not Given Diphenhydramine HCl (Benadryl) 25 mg IVPUSH Q6H PRN PRN Reason: pruritis Ephedrine Sulfate (Ephedrine Sulfate) 5 mg IVPUSH ASDIRECTED PRN PRN Reason: Hypotension Fentanyl (Sublimaze) 100 mcg EPIDUR Q3H PRN PRN Reason: Pain Last Admin: 02/09/19 21:21 Dose: 100 mcg Fentanyl/Bupivacaine HCl (Fentanyl/Bupivacaine/Ns 2 Mcg-0.125% 100 Ml) 100 ml EPIDUR ASDIRECTED PRN PRN Reason: Pain Last Admin: 02/09/19 21:20 Dose: 100 ml Lactated Ringer's (Ringers, Lactated) 1,000 mls @ 40 mls/hr IV ASDIRECTED STEPHIE Last Admin: 02/09/19 21:48 Dose: 40 mls/hr Oxytocin/Lactated Ringer's (Pitocin In Lr 10 Units/1,000 Ml) 10 unit in 1,000 mls @ 12 mls/hr IV TITRATE STEPHIE; Protocol Last Titration: 02/09/19 22:16 Dose: 500 mls/hr Oxytocin/Lactated Ringer's (Pitocin In Lr 10 Units/1,000 Ml) 10 unit in 1,000 mls @ 500 mls/hr IV .CONTINUOUS STEPHIE Cefazolin Sodium/Dextrose 2 gm (/ Premix) 50 mls @ 100 mls/hr IV ONETIME ONE Stop: 02/09/19 23:08 Last Admin: 02/09/19 22:45 Dose: 100 mls/hr Nalbuphine HCl (Nubain) 10 mg IVPUSH Q2H PRN PRN Reason: Pain Ondansetron HCl (Zofran) 4 mg IVPUSH Q4H PRN PRN Reason: Nausea/Vomiting Sodium Chloride (Saline Flush) 10 ml FLUSH ASDIRECTED PRN PRN Reason: Keep Vein Open - Interaction Disposition, : [place] in Room with Family Interaction: Holding Infant Feeding: Breastfed Infant; Nursed Well Support Person: - Recovery Exam Fundal Tone: Firm Fundal Level: 1 Fingerbreadths Below Umbilicus Fundal Placement: Midline Lochia Amount: Small Lochia Color: Rubra/Red Perineum Description: Other (see below) Other Perinuem Description: 1st degree without repair Episiotomy/Laceration: None Bladder Status: Voiding Urinary Elimination: Voided - Exam General: Alert, Oriented, Cooperative GI/Abdominal Exam: Soft, Non-Tender Extremities: Normal Inspection Skin: Warm, Dry, Intact - Problem List & Annotations (1) 39 weeks gestation of SNOMED Code(s): 05908104 Code(s): Z3A.39 - 39 WEEKS GESTATION OF Status: Acute Current Visit: Yes (2) Rh negative state in antepartum period SNOMED Code(s): 652246829 Code(s): O26.899 - OTH RELATED CONDITIONS, UNSPECIFIED TRIMESTER; Z67.91 - UNSPECIFIED BLOOD TYPE, RH NEGATIVE Status: Acute Current Visit: Yes (3) Vaginal delivery SNOMED Code(s): 832928318 Code(s): O80 - ENCOUNTER FOR FULL-TERM UNCOMPLICATED DELIVERY Status: Acute Current Visit: Yes (4) Velamentous insertion of umbilical cord SNOMED Code(s): 66305335 Code(s): O43.129 - VELAMENTOUS INSERTION OF UMBILICAL CORD, UNSP TRIMESTER Status: Acute Current Visit: Yes Qualifiers: Trimester: third trimester Qualified Code(s): O43.123 - Velamentous insertion of umbilical cord, third trimester (5) Retained placenta SNOMED Code(s): 563892617 Code(s): O73.0 - RETAINED PLACENTA WITHOUT HEMORRHAGE Status: Acute Current Visit: Yes Qualifiers: Retained placenta detail: complete placenta Qualified Code(s): O73.0 - Retained placenta without hemorrhage - Problem List Review Problem List Initiated/Reviewed/Updated: Yes - My Orders Last 24 Hours: My Active Orders 02/09/19 16:28 Monitoring [RC] INTERMITTENT Vaginal Exam [RC] ASDIRECTED Resuscitation Status Routine 02/09/19 16:29 Heart Tones [RC] ASDIRECTED Peripheral IV Care [RC] Q2HR 02/09/19 23:26 Activity as Tolerated [RC] PER UNIT ROUTINE Vital Signs [RC] 03,,15,21 Acetaminophen [Tylenol] 650 mg PO Q4H PRN Benzocaine/Menthol [Dermoplast Pain Relief Bonnie] See Dose Instructions TOP ASDIRECTED PRN Docusate Sodium [Colace] 100 mg PO BID PRN Ibuprofen [Motrin] 600 mg PO Q6H PRN Lanolin [Lansinoh HPA] See Dose Instructions TOP ASDIRECTED PRN Witch Nayla [Tucks] 1 pad TOP ASDIRECTED PRN Assess Lochia [WOMSER] Per Unit Routine Assess Uterine Involution [WOMSER] Per Unit Routine Breast Pump [WOMSER] Per Unit Routine Heat Therapy [OM.PC] PRN Ice Therapy [OM.PC] Per Unit Routine Perineal Care [OM.PC] Per Unit Routine Peripheral IV Discontinue [OM.PC] Routine Sitz Bath [OM.PC] Per Unit Routine 02/10/19 23:26 Heat Therapy [OM.PC] PRN - Assessment Assessment:: 28 y/o PPD#1 from at 39 2/7 wks - Plan Plan:: * Routine cares * Breast feeding * Baby girl Rh negative, no need for rhogam * Discharge home tomorrow
--- NOTE | 2019-02-10 13:58 | PCM48HPAN ---
Post Anesthesia Note - EVALUATION WITHIN 48HRS OF ANESTHETIC Vital Signs in Normal Range: Yes Patient Participated in Evaluation: Yes Respiratory Function Stable: Yes Airway Patent: Yes Cardiovascular Function Stable: Yes Hydration Status Stable: Yes Pain Control Satisfactory: Yes Nausea and Vomiting Control Satisfactory: Yes Mental Status Recovered: Yes Vital Signs: Last Vital Signs Temp 36.6 C 02/10/19 08:07 Pulse 55 L 02/10/19 08:07 Resp 12 02/10/19 08:07 BP 137/93 H 02/10/19 08:07 Pulse Ox 97 02/10/19 08:07 - COMMENTS/OBSERVATIONS Free Text/Narrative:: Patient has some tenderness in her low back. Instructed her not to bath for a couple of day, but that showering was fine. Also instructed her to use ice for 20 minutes at a time PRN, as well as ibuprofen, if tolerated. Patient verbalizes understanding. No discoloration or signs of abnormal tissue damage at site.
--- NOTE | 2019-02-11 07:05 | PCM.PNPP ---
- General Info Date of Service: 02/11/19 Functional Status: Reports: Pain Controlled, Tolerating Diet, Ambulating, Urinating - Review of Systems General: Reports: No Symptoms Pulmonary: Reports: No Symptoms Cardiovascular: Reports: No Symptoms Gastrointestinal: Reports: Nausea Genitourinary: Reports: No Symptoms Musculoskeletal: Reports: No Symptoms Neurological: Reports: No Symptoms - Patient Data Vital Signs - Most Recent: Last Vital Signs Temp 36.7 C 02/11/19 04:41 Pulse 67 02/11/19 04:41 Resp 16 02/11/19 04:41 BP 131/89 02/11/19 04:41 Pulse Ox 97 02/11/19 04:41 Weight - Most Recent: 75.931 kg I&O - Last 24 Hours: Intake & Output 02/10/19 02/11/19 02/11/19 22:59 06:59 14:59 Intake Total 0 Balance 0 Med Orders - Current: Current Medications Acetaminophen (Tylenol) 650 mg PO Q4H PRN PRN Reason: mild pain or fever Benzocaine/Menthol (Dermoplast Pain Relief [place]) 0 gm TOP ASDIRECTED PRN PRN Reason: Perineal Comfort Measure Last Admin: 02/10/19 02:58 Dose: 1 applicful Docusate Sodium (Colace) 100 mg PO BID PRN PRN Reason: Constipation Last Admin: 02/10/19 18:25 Dose: 100 mg Emollient Ointment (Lansinoh Hpa) 0 gm TOP ASDIRECTED PRN PRN Reason: Sore Nipples Ibuprofen (Motrin) 600 mg PO Q6H PRN PRN Reason: Mild pain or fever Witch Nayla (Tucks) 1 pad TOP ASDIRECTED PRN PRN Reason: Perineal Comfort Measure Last Admin: 02/10/19 02:57 Dose: 1 applic Discontinued Medications Cefazolin Sodium/Dextrose (Ancef) Confirm Administered Dose 2 gm IV .STK-MED ONE Stop: 02/09/19 22:46 Last Admin: 02/09/19 23:44 Dose: Not Given Diphenhydramine HCl (Benadryl) 25 mg IVPUSH Q6H PRN PRN Reason: pruritis Ephedrine Sulfate (Ephedrine Sulfate) 5 mg IVPUSH ASDIRECTED PRN PRN Reason: Hypotension Fentanyl (Sublimaze) 100 mcg EPIDUR Q3H PRN PRN Reason: Pain Last Admin: 02/09/19 21:21 Dose: 100 mcg Fentanyl/Bupivacaine HCl (Fentanyl/Bupivacaine/Ns 2 Mcg-0.125% 100 Ml) 100 ml EPIDUR ASDIRECTED PRN PRN Reason: Pain Last Admin: 02/09/19 21:20 Dose: 100 ml Lactated Ringer's (Ringers, Lactated) 1,000 mls @ 40 mls/hr IV ASDIRECTED STEPHIE Last Admin: 02/09/19 21:48 Dose: 40 mls/hr Oxytocin/Lactated Ringer's (Pitocin In Lr 10 Units/1,000 Ml) 10 unit in 1,000 mls @ 12 mls/hr IV TITRATE STEPHIE; Protocol Last Titration: 02/09/19 22:16 Dose: 500 mls/hr Oxytocin/Lactated Ringer's (Pitocin In Lr 10 Units/1,000 Ml) 10 unit in 1,000 mls @ 500 mls/hr IV .CONTINUOUS STEPHIE Cefazolin Sodium/Dextrose 2 gm (/ Premix) 50 mls @ 100 mls/hr IV ONETIME ONE Stop: 02/09/19 23:08 Last Admin: 02/09/19 22:45 Dose: 100 mls/hr Nalbuphine HCl (Nubain) 10 mg IVPUSH Q2H PRN PRN Reason: Pain Ondansetron HCl (Zofran) 4 mg IVPUSH Q4H PRN PRN Reason: Nausea/Vomiting Sodium Chloride (Saline Flush) 10 ml FLUSH ASDIRECTED PRN PRN Reason: Keep Vein Open - Interaction Disposition, : [place] in Room with Family Interaction: Holding Infant Infant Feeding: Breastfed ; Nursed Well Support Person: - Recovery Exam Fundal Tone: Firm Fundal Level: 1 Fingerbreadths Below Umbilicus Fundal Placement: Midline Lochia Amount: Small Lochia Color: Rubra/Red Perineum Description: Other (see below) Other Perinuem Description: 1st degree without repair Episiotomy/Laceration: Approximated Bladder Status: Voiding Urinary Elimination: Voided - Exam General: Alert, Oriented, Cooperative GI/Abdominal Exam: Soft, Non-Tender Extremities: Normal Inspection Skin: Warm, Dry, Intact - Problem List & Annotations (1) 39 weeks gestation of SNOMED Code(s): 24115955 Code(s): Z3A.39 - 39 WEEKS GESTATION OF Status: Acute Current Visit: Yes (2) Rh negative state in antepartum period SNOMED Code(s): 571230317 Code(s): O26.899 - OTH RELATED CONDITIONS, UNSPECIFIED TRIMESTER; Z67.91 - UNSPECIFIED BLOOD TYPE, RH NEGATIVE Status: Acute Current Visit: Yes (3) Vaginal delivery SNOMED Code(s): 842968001 Code(s): O80 - ENCOUNTER FOR FULL-TERM UNCOMPLICATED DELIVERY Status: Acute Current Visit: Yes (4) Velamentous insertion of umbilical cord SNOMED Code(s): 76939715 Code(s): O43.129 - VELAMENTOUS INSERTION OF UMBILICAL CORD, UNSP TRIMESTER Status: Acute Current Visit: Yes Qualifiers: Trimester: third trimester Qualified Code(s): O43.123 - Velamentous insertion of umbilical cord, third trimester (5) Retained placenta SNOMED Code(s): 615089221 Code(s): O73.0 - RETAINED PLACENTA WITHOUT HEMORRHAGE Status: Acute Current Visit: Yes Qualifiers: Retained placenta detail: complete placenta Qualified Code(s): O73.0 - Retained placenta without hemorrhage - Problem List Review Problem List Initiated/Reviewed/Updated: Yes - My Orders Last 24 Hours: My Active Orders 02/10/19 23:26 Heat Therapy [OM.PC] PRN 02/11/19 07:04 Ready for Discharge [RC] PER UNIT ROUTINE - Assessment Assessment:: 28 y/o PPD#2 from at 39 2/7 wks - Plan Plan:: * Routine cares * Breast feeding * Baby girl Rh negative, no need for rhogam * Discharge home today
--- NOTE | 2019-02-11 07:08 | PCM.DCSUM1 ---
Discharge Summary - Discharge Data Discharge Date: 02/11/19 Discharge Disposition: Home, Self-Care 01 Condition: Good - Referral to Home Health Primary Care Physician: Wyatt Thakur MD - Discharge Diagnosis/Problem(s) (1) 39 weeks gestation of SNOMED Code(s): 99001673 ICD Code: Z3A.39 - 39 WEEKS GESTATION OF Status: Acute Current Visit: Yes (2) Rh negative state in antepartum period SNOMED Code(s): 882165338 ICD Code: O26.899 - OTH RELATED CONDITIONS, UNSPECIFIED TRIMESTER; Z67.91 - UNSPECIFIED BLOOD TYPE, RH NEGATIVE Status: Acute Current Visit: Yes (3) Vaginal delivery SNOMED Code(s): 509535649 ICD Code: O80 - ENCOUNTER FOR FULL-TERM UNCOMPLICATED DELIVERY Status: Acute Current Visit: Yes (4) Velamentous insertion of umbilical cord SNOMED Code(s): 55949395 ICD Code: O43.129 - VELAMENTOUS INSERTION OF UMBILICAL CORD, UNSP TRIMESTER Status: Acute Current Visit: Yes Qualifiers: Trimester: third trimester Qualified Code(s): O43.123 - Velamentous insertion of umbilical cord, third trimester (5) Retained placenta SNOMED Code(s): 967788939 ICD Code: O73.0 - RETAINED PLACENTA WITHOUT HEMORRHAGE Status: Acute Current Visit: Yes Qualifiers: Retained placenta detail: complete placenta Qualified Code(s): O73.0 - Retained placenta without hemorrhage - Patient Summary/Data Complications: None Consults: None Recommended Follow-up Testing/Procedures: Follow up in 2 weeks for check Hospital Course: 28 y/o at 39 2/7 wks presented for IOL. This was done with pitocin and AROM. She progressed well and underwent an uncomplicated . Placenta, however, retained and needed to be manually extracted. She did well with this as well. was discharged home on PPD#2 - Patient Instructions Diet: Regular Diet as Tolerated Activity: As Tolerated Activity, Other: Pelvic rest for 6 weeks Driving: May Drive Today Showering/Bathing: May Shower Showering/Bathing, Other: May bathe Notify Provider of: Fever, Increased Pain, Swelling and Redness, Drainage, Nausea and/or Vomiting - Discharge Plan *PRESCRIPTION DRUG MONITORING PROGRAM REVIEWED*: Not Applicable *COPY OF PRESCRIPTION DRUG MONITORING REPORT IN PATIENT TD: Not Applicable Home Medications: Home Meds Vits #93/Iron Fum/FA [ Formula Tablet] 1 tab PO DAILY 07/10/17 [History] Docusate Sodium [Colace] 100 mg PO BID PRN cap 02/10/19 [Rx] Ibuprofen [Motrin] 600 mg PO Q6H PRN tablet 02/10/19 [Rx] Referrals: Wyatt Thakur MD [Primary Care Provider] - (2 weeks for check ) - Discharge Summary/Plan Comment DC Time >30 min.: No - Patient Data Vitals - Most Recent: Last Vital Signs Temp 36.7 C 02/11/19 04:41 Pulse 67 02/11/19 04:41 Resp 16 02/11/19 04:41 BP 131/89 02/11/19 04:41 Pulse Ox 97 02/11/19 04:41 Weight - Most Recent: 75.931 kg I&O - Last 24 hours: Intake & Output 02/10/19 02/11/19 02/11/19 22:59 06:59 14:59 Intake Total 0 Balance 0 Med Orders - Current: Current Medications Acetaminophen (Tylenol) 650 mg PO Q4H PRN PRN Reason: mild pain or fever Benzocaine/Menthol (Dermoplast Pain Relief [place]) 0 gm TOP ASDIRECTED PRN PRN Reason: Perineal Comfort Measure Last Admin: 02/10/19 02:58 Dose: 1 applicful Docusate Sodium (Colace) 100 mg PO BID PRN PRN Reason: Constipation Last Admin: 02/10/19 18:25 Dose: 100 mg Emollient Ointment (Lansinoh Hpa) 0 gm TOP ASDIRECTED PRN PRN Reason: Sore Nipples Ibuprofen (Motrin) 600 mg PO Q6H PRN PRN Reason: Mild pain or fever Witch Nayla (Tucks) 1 pad TOP ASDIRECTED PRN PRN Reason: Perineal Comfort Measure Last Admin: 02/10/19 02:57 Dose: 1 applic Discontinued Medications Cefazolin Sodium/Dextrose (Ancef) Confirm Administered Dose 2 gm IV .STK-MED ONE Stop: 02/09/19 22:46 Last Admin: 02/09/19 23:44 Dose: Not Given Diphenhydramine HCl (Benadryl) 25 mg IVPUSH Q6H PRN PRN Reason: pruritis Ephedrine Sulfate (Ephedrine Sulfate) 5 mg IVPUSH ASDIRECTED PRN PRN Reason: Hypotension Fentanyl (Sublimaze) 100 mcg EPIDUR Q3H PRN PRN Reason: Pain Last Admin: 02/09/19 21:21 Dose: 100 mcg Fentanyl/Bupivacaine HCl (Fentanyl/Bupivacaine/Ns 2 Mcg-0.125% 100 Ml) 100 ml EPIDUR ASDIRECTED PRN PRN Reason: Pain Last Admin: 02/09/19 21:20 Dose: 100 ml Lactated Ringer's (Ringers, Lactated) 1,000 mls @ 40 mls/hr IV ASDIRECTED STEPHIE Last Admin: 02/09/19 21:48 Dose: 40 mls/hr Oxytocin/Lactated Ringer's (Pitocin In Lr 10 Units/1,000 Ml) 10 unit in 1,000 mls @ 12 mls/hr IV TITRATE STEPHIE; Protocol Last Titration: 02/09/19 22:16 Dose: 500 mls/hr Oxytocin/Lactated Ringer's (Pitocin In Lr 10 Units/1,000 Ml) 10 unit in 1,000 mls @ 500 mls/hr IV .CONTINUOUS STEPHIE Cefazolin Sodium/Dextrose 2 gm (/ Premix) 50 mls @ 100 mls/hr IV ONETIME ONE Stop: 02/09/19 23:08 Last Admin: 02/09/19 22:45 Dose: 100 mls/hr Nalbuphine HCl (Nubain) 10 mg IVPUSH Q2H PRN PRN Reason: Pain Ondansetron HCl (Zofran) 4 mg IVPUSH Q4H PRN PRN Reason: Nausea/Vomiting Sodium Chloride (Saline Flush) 10 ml FLUSH ASDIRECTED PRN PRN Reason: Keep Vein Open
== END 2019-02-11 10:25 | disposition home or self-care (01) | DRG 560 ==
LOC: JD.OBCHECK 16:25 → JD.OB 16:26 → OBSVTOIN 22:15 → JD.OB 22:16
PROVIDERS: ADMIT Obstetrics & Gynecology; ATTEND Obstetrics & Gynecology
PROC: 10E0XZZ Delivery of Products of Conception, External Approach (ICD-10-PCS; principal; 2019-02-09)
PROC: 10907ZC Drainage of Amniotic Fluid, Therapeutic from Products of Conception, Via Natural or Artificial Opening (ICD-10-PCS; 2019-02-09)
PROC: 3E033VJ Introduction of Other Hormone into Peripheral Vein, Percutaneous Approach (ICD-10-PCS; 2019-02-09)
PROC: 3E0R3BZ Introduction of Anesthetic Agent into Spinal Canal, Percutaneous Approach (ICD-10-PCS; 2019-02-09)
PROC: 00HU33Z Insertion of Infusion Device into Spinal Canal, Percutaneous Approach (ICD-10-PCS; 2019-02-09)
DX: O43.123 Velamentous insertion of umbilical cord, third trimester (principal); O70.0 First degree perineal laceration during delivery; O73.0 Retained placenta without hemorrhage; Z3A.39 39 weeks gestation of pregnancy; Z37.0 Single live birth
CPT/HCPCS: 01967; 36415; 51701; 59025; 59409; 85027; 86592; 86850; 86900; 86901; A9270-GY; J0690; J2590; J3010; J3490; J7120

== ENCOUNTER 2020-07-28 20:04 | Emergency (ER) | payer BC ==
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
== END 2020-07-28 20:40 | disposition home or self-care (01) ==
LOC: JD.ED 20:04
DX: S01.511A Laceration without foreign body of lip, initial encounter (principal); Z91.013 Allergy to seafood; W50.0XXA Accidental hit or strike by another person, initial encounter; Y92.009 Unspecified place in unspecified non-institutional (private) residence as the place of occurrence of the external cause
CPT/HCPCS: 99282